=== PATIENT | male | born 1970 | race Caucasian/White ===

== ENCOUNTER 2024-09-06 11:44 | Emergency (ER) | payer MEDICAID ==
[~2024-09-06] VITALS: Ht 180.3 cm; Wt 115.0 kg
[2024-09-06 12:34] LABS: BASOPHILS # (AUTO) 0.1 X10'3 (0-0.2); BASOPHILS % (AUTO) 1.3 % (0-1); EOSINOPHILS # (AUTO) 0.1 X10'3 (0-0.9); EOSINOPHILS % (AUTO) 1.5 % (0-6); HEMATOCRIT 50.5 % (42.0-52.0); HEMOGLOBIN 16.8 g/dl (14.0-17.9); LYMPHOCYTES # (AUTO) 1.6 X10'3 (1.1-4.8); LYMPHOCYTES % (AUTO) 19.7 % (21-51); MEAN CORPUSCULAR HEMOGLOBIN 30.3 PG (27.0-31.0); MEAN CORPUSCULAR HGB CONC 33.3 g/dL (33.0-36.5); MEAN CORPUSCULAR VOLUME 91.1 FL (78-98); MEAN PLATELET VOLUME 8.2 FL (7.4-10.4); MONOCYTES % (AUTO) 12.7 % (2-12); NEUTROPHILS # (AUTO) 5.1 X10'3 (1.8-7.7); NEUTROPHILS % (AUTO) 64.8 % (42-75); PLATELET COUNT 246 X10'3 (140-440); RED BLOOD COUNT 5.55 X10'6 (4.70-6.10); RED CELL DISTRIBUTION WIDTH 13.6 % (11.5-14.5); WHITE BLOOD COUNT 7.9 X10'3 (4.5-11.0)
[2024-09-06 12:53] LABS: ALANINE AMINOTRANSFERASE 178 U/L (12-78); ALBUMIN 3.7 G/DL (3.4-5.0); ALBUMIN/GLOBULIN RATIO 0.8 (1.1-1.5); ALKALINE PHOSPHATASE 93 IU/L (46-116); ANION GAP 11 (8-16); ASPARTATE AMINO TRANSFERASE 121 U/L (10-37); BILIRUBIN,TOTAL 0.6 MG/DL (0.1-1.0); BLOOD UREA NITROGEN 11 MG/DL (7-18); BUN/CREATININE RATIO 11.1 (10.0-20.0); CHLORIDE 103 MMOL/L (99-107); CREATININE 0.99 MG/DL (0.60-1.10); GLUCOSE 115 MG/DL (70-104); LIPASE 30 U/L (16-77); SODIUM 138 MMOL/L (135-145); TOTAL CARBON DIOXIDE 23.7 MMOL/L (24-32); TOTAL PROTEIN 8.1 G/DL (6.4-8.2); eCRCL 92 ML/MIN; eGFR 79 ML/MIN
[2024-09-06] MEDS ORDERED: FLO0.4C PO (16:43)
[2024-09-06] MEDS ORDERED: HYDR-3965 PO (16:43)
[2024-09-06] MEDS ORDERED: ONDA-243 PO (16:43)
[2024-09-06] MEDS ORDERED: IBUP-1986 PO (16:43)
[2024-09-06] MEDS: ketorolac trometh 15mg/ml vial 15 MG/ML ML IM ONE (17:18)
[2024-09-06] MEDS: HYDROcodone/acetaminophen 5mg/325mg tablet PO ONE (17:18)
[2024-09-06 17:22] VITALS: BP 150/93; PULSE 75; RESP 16; TEMP 98.3; O2SAT 98
== END 2024-09-06 17:24 | disposition home or self-care (01) ==
LOC: ER 11:45
DX: N20.0 Calculus of kidney (principal); R10.31 Right lower quadrant pain; K46.9 Unspecified abdominal hernia without obstruction or gangrene; I70.90 Unspecified atherosclerosis; Z79.1 Long term (current) use of non-steroidal anti-inflammatories (NSAID); Z79.899 Other long term (current) drug therapy; Z93.2 Ileostomy status; Z93.3 Colostomy status
CPT/HCPCS: 36415; 74176; 80053; 83690; 85025; 96372; 99285; J1885

== ENCOUNTER 2025-03-17 12:25 | Inpatient (IN) | payer MEDICAID ==
[~2025-03-17] VITALS: Ht 175.3 cm; Wt 120.7 kg
[~2025-03-17 12:25] MED LIST: FLO0.4C PO; IBUP-1986 PO; ONDA-243 PO
[2025-03-17 13:18] LABS: BASOPHILS # (AUTO) 0.1 X10'3 (0-0.2); BASOPHILS % (AUTO) 1.3 % (0-1); EOSINOPHILS # (AUTO) 0.4 X10'3 (0-0.9); EOSINOPHILS % (AUTO) 3.8 % (0-6); HEMATOCRIT 34.5 % (42.0-52.0); HEMOGLOBIN 11.4 g/dl (14.0-17.9); LYMPHOCYTES # (AUTO) 1.6 X10'3 (1.1-4.8); MEAN CORPUSCULAR HEMOGLOBIN 29.4 PG (27.0-31.0); MEAN CORPUSCULAR HGB CONC 32.9 g/dL (33.0-36.5); MEAN CORPUSCULAR VOLUME 89.5 FL (78-98); MEAN PLATELET VOLUME 7.7 FL (7.4-10.4); MONOCYTES % (AUTO) 9.5 % (2-12); NEUTROPHILS # (AUTO) 7.6 X10'3 (1.8-7.7); NEUTROPHILS % (AUTO) 70.4 % (42-75); PLATELET COUNT 391 X10'3 (140-440); RED BLOOD COUNT 3.86 X10'6 (4.70-6.10); RED CELL DISTRIBUTION WIDTH 14.4 % (11.5-14.5); WHITE BLOOD COUNT 10.8 X10'3 (4.5-11.0)
--- NOTE | 2025-03-17 13:26 | RADIOLOGY REPORT ---
CHEST RADIOGRAPH Indication: sepsis Technique: Single frontal view of the chest was obtained COMPARISON: None FINDINGS: The cardiac silhouette is enlarged. The lungs demonstrate bilateral patchy airspace opacities. The pu lmonary vasculature is prominent. Small bilateral pleural effusions. There is no pneumothorax. IMPRESSION: 1. Cardiomegaly with pulmonary vascular congestion and bilateral patchy airspace opacities.
[2025-03-17 13:27] LABS: ALBUMIN 3.3 G/DL (3.4-5.0); ANION GAP 11 (8-16); BLOOD UREA NITROGEN 16 MG/DL (7-18); BUN/CREATININE RATIO 17.8 (10.0-20.0); CALCIUM 8.7 MG/DL (8.5-10.1); CHLORIDE 104 MMOL/L (99-107); GLUCOSE 122 MG/DL (70-104); POTASSIUM 4.1 MMOL/L (3.5-5.1); SODIUM 139 MMOL/L (135-145); eCRCL 95 ML/MIN; eGFR 88 ML/MIN
[2025-03-17 15:41] LABS: BILIRUBIN,URINE NEGATIVE (Neg); CLARITY,URINE SLIGHTLY CLOUDY (Clear); COLOR,URINE YELLOW (Yellow); GLUCOSE, URINE NEGATIVE (Neg); KETONES,URINE NEGATIVE (Neg); LEUKOCYTE ESTERASE ,URINE NEGATIVE (Neg); NITRITES, URINE NEGATIVE (Neg); OCCULT BLOOD,URINE LARGE (Neg); PROTEIN,URINE 100 mg/dl (Neg); UROBILINOGEN,URINE 0.2 E.U/dL (0.2-1.0)
[2025-03-17 15:42] LABS: UA COLLECTION TYPE VOIDED
[2025-03-17 15:55] LABS: MUCUS STRANDS MODERATE /LPF (Neg); RBC,URINE TNTC /HPF (0-2); SPERM MODERATE /HPF (NEGATIVE); SQUAMOUS EPITHELIAL CELL,UR FEW /LPF (FEW)
[2025-03-17 15:57] LABS: BACTERIA,URINE FEW /HPF (Neg); WBC,URINE 20-30 /HPF (0-4)
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
[2025-03-17] MEDS: ondansetron/PF 4mg/2ml inj IV ONE (16:47)
[2025-03-17] MEDS: LIDOcaine 1% W/epiNEPHrine 1:100,000 20ml vial SQ ONE (16:47)
[2025-03-17] MEDS: morphine 4 MG/ML inj SYRINge IV ONE (16:48)
[2025-03-17] MEDS: LIDOcaine/epinephrine/tetracaine TOPICAL sol 3 ML syringe TOP ONE ×2 (16:49→19:01)
[2025-03-17] MEDS: ketorolac trometh 30MG/ML vial 30 MG/ML VIAL IM ONE (16:59)
--- NOTE | 2025-03-17 17:57 | RADIOLOGY REPORT ---
Indication: suspected right kidney stone Technique: CT axial images of the abdomen and pelvis are obtained with intravenous contrast. Coronal and sagittal reformats were obtained. Radiation Dose Information: CTDI volume is 35 mGy. Dose-length product is 1949 mGy*cm Comparison: CT CT ABDOMEN PELVIS on DOS: 09/06/24 FINDINGS: Lung bases demonstrate bibasilar atelectasis / consolidation. Adrenal glands unremarkable in shape. Splenic hilar calcification measuring 1 cm consistent with jeniffer te granulomatous disease. Pancreas, liver unremarkable in shape. Cholelithiasis. Right renal pelvic calculus resulting in llde-dm-qhydtygp right hydronephrosis measuring 1.4 cm. There is right periure teral stranding. Left kidney demonstrates no hydronephrosis / nephrolithiasis. Stomach is partially distended. Small bowel loops are normal in caliber. Colonic diverticula. Hemicolectomy. Right ileostomy with parastomal hernia containing small bowel loo ps measuring 6.6 x 5.7 cm. Abdominal aortic atherosclerotic disease. Subcentimeter retroperitoneal lymph nodes. Bladder disten ded. No free pelvic fluid. No inguinal lymphadenopathy. Mild bilateral sacroiliac degenerative joint disease. Old posterior left rib fractures. Moderate thor acolumbar degenerative disc disease most pronounced at L5-S1. Soft tissue edema /anasarca. IMPRESSION: 1. Gjcw-ku-rzrhmosj right hydronephrosis secondary to a right renal pelvic calculus measuring 1.4 cm. Right periureteral stranding likely representing urinary tract infection/pyelonephritis. 2. Cholelithiasis. 3. Hemicolectomy. Right ileostomy. Right parastomal hernia containing small bowel loops measuring 6 .6 x 5.7 cm. 4. Bibasilar atelectasis/ consolidation. 5. Atherosclerotic disease. 6. Soft tissue edema / anasarca.
[2025-03-17] MEDS ORDERED: magnesium Cl slow-release 64mg tablet PO PRN (18:35)
[2025-03-17] MEDS ORDERED: magnesium hydroxide 30ml (MOM) UD suspension PO PRN (18:35)
[2025-03-17] MEDS: PERFLUTREN PROTEIN-A MICROSPHR (Optison) 0.22 MG/ML 3ML VIAL IV ONE (18:35)
[2025-03-17] MEDS ORDERED: potassium Cl 40MEQ/1/2NS 520ml 520 ML IV PRN (18:35)
[2025-03-17] MEDS ORDERED: magnesium sulf-water 4G/100mL 100 ML IV PRN (18:35)
[2025-03-17] MEDS ORDERED: magnesium sulf-water 2g/50mL 50 ML IV PRN (18:35)
[2025-03-17] MEDS ORDERED: potassium Cl 20 mEq SR tablet PO PRN ×2 (18:35)
[2025-03-17] MEDS ORDERED: mag hydrox/Alum hydrox/simeth 30ml oral suspension PO PRN (18:35)
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
[2025-03-17] MEDS ORDERED: haloperidol lactate 5mg/ml inj IM PRN (18:45)
[2025-03-17] MEDS ORDERED: LORazepam 2 mg/ml vial IV PRN (18:45)
[2025-03-17] MEDS ORDERED: iohexol 300mg/ml 100ml inj. ONE (19:05)
[2025-03-17 19:08] LABS: HEMOGLOBIN A1C 5.9 % (4.5-6.2)
[2025-03-17 19:14] LABS: APTT 28 SECONDS (22-32); INR 1.1 INR; PROTHROMBIN TIME 10.9 SECONDS (9.0-12.0)
[2025-03-17] MEDS: vancomycin/NS 1 GM ADD-VANTAGE 250 ML IV SCH (19:24)
--- NOTE | 2025-03-17 19:26 | RADIOLOGY REPORT ---
CLINICAL HISTORY: trauma 2 weeks ago TECHNIQUE: Helical imaging carried out from skull base to vertex without intravenous contrast. This e xam was performed according to our departmental dose optimization program. Up-to-date CT equipment an d radiation dose reduction techniques are utilized as appropriate. CTDIVol: 0.14+ 69.06 mGy DLP: 1336.79 mGy-cm WID: COMPARISON: None FINDINGS: Moderate contusion/ hematoma in the posterior high parietal scalp. The ventricles and subarachnoid spaces are normal in size and configuration. There is no midline maico ft or mass effect. The young white matter interfaces are maintained. The basal cisterns are patent. Th ere is no evidence of acute intracranial hemorrhage or extra-axial fluid collection. The mastoid air cells and visualized paranasal sinuses are well-aerated aside from a tiny mucous retention cyst or po lyp in the left maxillary sinus and complete opacification of the right maxillary sinus with sclerosi s of the right maxillary sinus ash.. IMPRESSION: 1. No acute intracranial abnormality. 2. Moderate sized contusion/ hematoma in the posterior high parietal scalp. 3. Chronic right maxillary sinusitis.
[2025-03-17 19:29] LABS: PRO BRAIN NATRIURETIC PEPTIDE 96 PG/ML (0-125); THYROID STIMULATING HORMONE 0.53 ulU/ml (0.34-4.50)
[2025-03-17 19:31] LABS: ETHANOL < 10 MG/DL (<10)
[2025-03-17] MEDS: K and/or MAG REPLACEMENT MC SCH (20:00)
[2025-03-17] MEDS: acetaminophen 325mg tablet PO PRN (21:10)
[2025-03-17] MEDS: heparin, porcine 5000 units/ml vial SQ SCH (21:11)
[2025-03-17] MEDS: docusate sod 100mg capsule PO SCH (21:11)
[2025-03-17] MEDS: piperacillin/tazo 4.5gm/100ml 100 ML IV SCH (22:56)
[2025-03-17] MEDS: HYDROmorphone inj. 0.5 MG/0.5 ML DISP.SYRIN IV PRN (23:06)
[2025-03-18] MEDS: diphenhydrAMINE 50 mg/ml inj IV ONE ×2 (01:53→11:35)
--- NOTE | 2025-03-18 03:52 | RADIOLOGY REPORT ---
INDICATION: Treatment fail left leg infections COMPARISON: None TECHNIQUE: CT of the left lower extremity was performed with contrast. Volume transverse images were obtained and reconstructed in multiple planes using bone and soft tissue algorithms. Radiation Dose Information: CT Dose: CTDI volume is 7.6 mGy. Dose-length product is 481 mGy*cm FINDINGS: The alignment is normal. The joint spaces are normal. There is no fracture, dislocation or aggressive osseous lesion. There is no joint effusion. Diffuse soft-tissue swelling and edema throughout the left lower extremity most prominent in the calf and ankle and dorsum of the foot. This may represent cellulitis. Soft-tissue ulceration at the poste rolateral aspect of the proximal calf. IMPRESSION: Diffuse soft-tissue swelling and edema throughout the left lower extremity most prominent in the calf and ankle and dorsum of the foot. This may represent cellulitis. Soft-tissue ulceration at the posterolateral aspect of the proximal calf.
[2025-03-18 04:33] LABS: BASOPHILS % (AUTO) 0.2 % (0-1); EOSINOPHILS # (AUTO) 0.5 X10'3 (0-0.9); EOSINOPHILS % (AUTO) 4.1 % (0-6); HEMATOCRIT 36.6 % (42.0-52.0); HEMOGLOBIN 12.2 g/dl (14.0-17.9); LYMPHOCYTES # (AUTO) 0.7 X10'3 (1.1-4.8); LYMPHOCYTES % (AUTO) 5.6 % (21-51); MEAN CORPUSCULAR HEMOGLOBIN 29.4 PG (27.0-31.0); MEAN CORPUSCULAR HGB CONC 33.2 g/dL (33.0-36.5); MEAN CORPUSCULAR VOLUME 88.5 FL (78-98); MEAN PLATELET VOLUME 7.4 FL (7.4-10.4); MONOCYTES # (AUTO) 0.5 X10'3 (0-0.9); MONOCYTES % (AUTO) 3.8 % (2-12); NEUTROPHILS # (AUTO) 10.9 X10'3 (1.8-7.7); NEUTROPHILS % (AUTO) 86.3 % (42-75); PLATELET COUNT 358 X10'3 (140-440); RED BLOOD COUNT 4.14 X10'6 (4.70-6.10); RED CELL DISTRIBUTION WIDTH 14.8 % (11.5-14.5); WHITE BLOOD COUNT 12.6 X10'3 (4.5-11.0)
[2025-03-18 04:55] LABS: ALANINE AMINOTRANSFERASE 120 U/L (12-78); ALBUMIN 3.1 G/DL (3.4-5.0); ALBUMIN/GLOBULIN RATIO 0.9 (1.1-1.5); ALKALINE PHOSPHATASE 138 IU/L (46-116); ANION GAP 7 (8-16); ASPARTATE AMINO TRANSFERASE 62 U/L (10-37); BILIRUBIN,TOTAL 0.6 MG/DL (0.1-1.0); BLOOD UREA NITROGEN 21 MG/DL (7-18); BUN/CREATININE RATIO 16.9 (10.0-20.0); CALCIUM 8.7 MG/DL (8.5-10.1); CHLORIDE 104 MMOL/L (99-107); CHOL/HDL RATIO 5.4 (0.00-4.99); CHOLESTEROL 188 MG/DL (0-200); CREATININE 1.24 MG/DL (0.60-1.10); GLUCOSE 118 MG/DL (70-104); HDL CHOLESTEROL 35 MG/DL (35-60); LDL CHOLESTEROL 118 MG/DL (50-100); POTASSIUM 4.1 MMOL/L (3.5-5.1); SODIUM 140 MMOL/L (135-145); TOTAL CARBON DIOXIDE 28.8 MMOL/L (24-32); TOTAL PROTEIN 6.7 G/DL (6.4-8.2); TRIGLYCERIDES 170 MG/DL (20-135); eCRCL 69 ML/MIN; eGFR 61 ML/MIN
[2025-03-18 06:53] VITALS: BP 132/81; PULSE 76; RESP 16; TEMP 97.9; O2SAT 96
[2025-03-18 08:00] VITALS: RESP 20; O2SAT 95
[2025-03-18] MEDS: multivitamins, therapeutics tablet PO SCH (08:20)
[2025-03-18] MEDS: normal saline 1000ml 1,000 ML IV SCH (08:21)
[2025-03-18] MEDS: cefepime 2g/NS 100ml ADVANTAGE 100 ML IV SCH (08:21)
[2025-03-18 10:00] VITALS: BP 124/66; PULSE 90; RESP 20; TEMP 97; O2SAT 95
[2025-03-18] MEDS: ketorolac trometh 30MG/ML vial 30 MG/ML VIAL IV ONE (10:53)
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
[2025-03-18] MEDS: CEFEPIME 2gm in D5W 50mL 50 ML IV SCH (16:45)
[2025-03-18] MEDS: HYDROcodone/acetaminophen 10/325mg tab PO PRN (16:50)
[2025-03-18] MEDS: JUVEN Smoothie Arginine/Glut./Ca2+Bmb (Juven 19.3pkt) 240ml cup PO SCH (17:30)
[2025-03-18 18:30] VITALS: BP 121/52; PULSE 78; RESP 19; TEMP 97.6; O2SAT 96
[2025-03-18] MEDS: VANCOMYCIN LEVEL IV ONE (18:30)
--- NOTE | 2025-03-18 18:30 | CARDIOLOGY REPORT ---
APPROVED REPORT EXAM: Comprehensive 2D, Doppler, and color-flow Echocardiogram. Patient Location: [address] Blood Pressure: 132/81 mmHg Heart Rate: 83 bpm Rhythm: SINUS Indications CONGESTIVE HEART FAILURE ETOH LE EDEMA Front Office Clerk: none Previous echo: none 2D Dimensions RVDd 5.1 cm LA Diam5.4 cm IVSd 1.1 (0.7-1.1cm) LVDd 4.7 cm PWd 1.1 (0.7-1.1cm) IVSs 1.2 (0.8-1.2cm) LVDs 3.6 (2.5-4.0cm) PWs 1.6 (0.8-1.2cm) LVOT Diameter 2.61 (1.8-2.4cm) LVEF(%) 57.0 (>50%) Ao Asc Diam.4.20 cmFS (%) 23.5 % SV 48.1 ml CO 4.1 L/min M-Mode Dimensions Left Atrium(MM) 5.17 (2.5-4.0cm) Aortic Root 4.21 (2.2-3.7cm) Aortic Cusp Exc 2.79 (1.5-2.0cm) Biplane 2D LA Volumes LA ESV Index 20.54 mL/m2 Aortic Valve AoV Peak Cain. 168.1 cm/s AoV VTI 24.9 cm AO Peak GR. 11.3 mmHg AO Mean GR. 7 mmHg LVOT VTI 23.71 cm LVOT Peak Cain. 111.3 cm/s BAIRON(VTI)/BSA 5.10 cm2/m2 BAIRON (VTI) 5.10 cm2 Mitral Valve MV E Velocity 95.7 cm/s MV Peak Gr. 4 mmHg MV DECEL TIME 272 ms MV A Velocity 107.0 cm/s MV PHT 64 ms E/A Ratio 0.9 MVA (PHT) 3.44 cm2 MV TEdg006.0 cm/s TDI Medial E' P. V 10.33 cm/s E/Medial E' 9.3 Pulmonary Vein S1 Velocity 51.4 cm/s D2 Velocity 38.1 cm/s PVa Ivimtemn86.3 cm/s PVa Ctigppcj17 msec LEFT VENTRICLE Normal LV size and wall thickness. Overall systolic function is normal. LVEF is 55%. RIGHT VENTRICLE RV is severely dilated with at least mildly reduced systolic function. ATRIA Left atrium size is normal. Right atrium appears moderately dilated. AORTIC VALVE Trileaflet AV appears mildly sclerotic without stenosis or insufficiency. MITRAL VALVE Mild MV annular calcification without stenosis. Trace regurgitation. TRICUSPID VALVE TV appears structurally normal with trace regurgitation. PULMONIC VALVE Normal PV without stenosis, physiologic insufficiency. GREAT VESSELS Aortic root is dilated. Ascending aorta is dilated. PERICARDIUM Normal pericardium. No effusion. Other Information Study Quality: Adequate Conclusion Normal LV size and wall thickness. Overall systolic function is normal. LVEF is 55%. RV is severely dilated with at least mildly reduced systolic function. Left atrium size is normal. Right atrium appears moderately dilated. Trileaflet AV appears mildly sclerotic without stenosis or insufficiency. Mild MV annular calcification without stenosis. Trace regurgitation. TV appears structurally normal with trace regurgitation. Aortic root is dilated. Ascending aorta is dilated. Normal pericardium. No effusion.
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
[2025-03-18] MEDS: diphenhydrAMINE 50 mg/ml inj IV PRN (20:06)
[2025-03-18 20:20] VITALS: RESP 16
[2025-03-18] MEDS: tamsulosin 0.4mg capsule PO SCH (20:45)
[2025-03-18 22:00] VITALS: BP 146/74; PULSE 80; RESP 15; TEMP 98.6; O2SAT 97
[2025-03-19] MEDS: HYDROmorphone/PF 0.2 MG/ML SYRINGE IV PRN (00:57)
[2025-03-19 05:02] LABS: BASOPHILS % (AUTO) 0.3 % (0-1); EOSINOPHILS # (AUTO) 1.6 X10'3 (0-0.9); EOSINOPHILS % (AUTO) 14.2 % (0-6); HEMATOCRIT 33.4 % (42.0-52.0); HEMOGLOBIN 11.1 g/dl (14.0-17.9); LYMPHOCYTES # (AUTO) 1.3 X10'3 (1.1-4.8); LYMPHOCYTES % (AUTO) 11.8 % (21-51); MEAN CORPUSCULAR HEMOGLOBIN 29.6 PG (27.0-31.0); MEAN CORPUSCULAR HGB CONC 33.3 g/dL (33.0-36.5); MEAN CORPUSCULAR VOLUME 88.8 FL (78-98); MEAN PLATELET VOLUME 7.9 FL (7.4-10.4); MONOCYTES # (AUTO) 0.6 X10'3 (0-0.9); MONOCYTES % (AUTO) 5.4 % (2-12); NEUTROPHILS # (AUTO) 7.7 X10'3 (1.8-7.7); NEUTROPHILS % (AUTO) 68.3 % (42-75); PLATELET COUNT 354 X10'3 (140-440); RED BLOOD COUNT 3.77 X10'6 (4.70-6.10); WHITE BLOOD COUNT 11.3 X10'3 (4.5-11.0)
[2025-03-19 05:15] LABS: ALANINE AMINOTRANSFERASE 95 U/L (12-78); ALBUMIN 2.9 G/DL (3.4-5.0); ALBUMIN/GLOBULIN RATIO 0.8 (1.1-1.5); ALKALINE PHOSPHATASE 128 IU/L (46-116); ANION GAP 8 (8-16); ASPARTATE AMINO TRANSFERASE 51 U/L (10-37); BILIRUBIN,TOTAL 0.4 MG/DL (0.1-1.0); BLOOD UREA NITROGEN 17 MG/DL (7-18); BUN/CREATININE RATIO 17.2 (10.0-20.0); CALCIUM 8.4 MG/DL (8.5-10.1); CHLORIDE 105 MMOL/L (99-107); CREATININE 0.99 MG/DL (0.60-1.10); GLUCOSE 133 MG/DL (70-104); MAGNESIUM 1.8 MG/DL (1.5-2.4); POTASSIUM 4.1 MMOL/L (3.5-5.1); SODIUM 138 MMOL/L (135-145); TOTAL CARBON DIOXIDE 25.5 MMOL/L (24-32); TOTAL PROTEIN 6.5 G/DL (6.4-8.2); eCRCL 86 ML/MIN; eGFR 79 ML/MIN
[2025-03-19 06:00] VITALS: BP 141/79; PULSE 86; RESP 15; TEMP 98; O2SAT 95
[2025-03-19 11:51] VITALS: BP 181/97; PULSE 73; RESP 16; TEMP 97.2; O2SAT 96
[2025-03-19] MEDS ORDERED: fluconazole 150mg tablet PO SCH (12:45)
[2025-03-19] MEDS ORDERED: nystatin 15 GM powder TP SCH (13:00)
[2025-03-19] MEDS: VANCOmycin 1250MG/NS 250ml Bag 250 ML IV SCH (14:55)
[2025-03-19] MEDS: HYDROcodone/acetaminophen 10/325mg tab PO PRN (15:12)
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
[2025-03-19 18:00] VITALS: BP 145/79; PULSE 84; RESP 16; TEMP 97.7; O2SAT 95
--- NOTE | 2025-03-19 18:14 | PROGRESS NOTE ---
Progress Note ID Providers to CC ~ Progress Note Progress Note: pt seen-needs scalp would washout and reclosure EDUAR JEAN MD Mar 19, 2025 18:14
[2025-03-19 20:00] VITALS: RESP 16; O2SAT 95
[2025-03-19 22:00] VITALS: BP 127/69; PULSE 76; RESP 19; TEMP 97.7; O2SAT 95
[2025-03-20] VITALS (19 sets, daily range): BP systolic 120–163; BP diastolic 65–91; PULSE 64–84; RESP 12–20; TEMP 97.3–98.7; O2SAT 94–100
[2025-03-20 04:22] LABS: BASOPHILS # (AUTO) 0.1 X10'3 (0-0.2); BASOPHILS % (AUTO) 0.6 % (0-1); EOSINOPHILS # (AUTO) 1.4 X10'3 (0-0.9); EOSINOPHILS % (AUTO) 15.1 % (0-6); HEMATOCRIT 32.5 % (42.0-52.0); LYMPHOCYTES # (AUTO) 1.3 X10'3 (1.1-4.8); LYMPHOCYTES % (AUTO) 13.9 % (21-51); MEAN CORPUSCULAR HEMOGLOBIN 29.9 PG (27.0-31.0); MEAN CORPUSCULAR HGB CONC 33.8 g/dL (33.0-36.5); MEAN CORPUSCULAR VOLUME 88.3 FL (78-98); MEAN PLATELET VOLUME 7.3 FL (7.4-10.4); MONOCYTES % (AUTO) 10.6 % (2-12); NEUTROPHILS # (AUTO) 5.6 X10'3 (1.8-7.7); NEUTROPHILS % (AUTO) 59.8 % (42-75); PLATELET COUNT 312 X10'3 (140-440); RED BLOOD COUNT 3.68 X10'6 (4.70-6.10); RED CELL DISTRIBUTION WIDTH 14.6 % (11.5-14.5); WHITE BLOOD COUNT 9.4 X10'3 (4.5-11.0)
[2025-03-20 04:36] LABS: ALANINE AMINOTRANSFERASE 98 U/L (12-78); ALKALINE PHOSPHATASE 121 IU/L (46-116); ANION GAP 8 (8-16); ASPARTATE AMINO TRANSFERASE 60 U/L (10-37); BILIRUBIN,TOTAL 0.4 MG/DL (0.1-1.0); BLOOD UREA NITROGEN 15 MG/DL (7-18); BUN/CREATININE RATIO 16.9 (10.0-20.0); CALCIUM 8.6 MG/DL (8.5-10.1); CHLORIDE 106 MMOL/L (99-107); CREATININE 0.89 MG/DL (0.60-1.10); GLUCOSE 106 MG/DL (70-104); POTASSIUM 4.5 MMOL/L (3.5-5.1); SODIUM 140 MMOL/L (135-145); TOTAL CARBON DIOXIDE 25.7 MMOL/L (24-32); TOTAL PROTEIN 6.1 G/DL (6.4-8.2); eCRCL 96 ML/MIN; eGFR 89 ML/MIN
--- NOTE | 2025-03-20 07:04 | ELECTROCARDIOGRAPH REPORT ---
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 Keny Tate Measurements Intervals [place] Rate: 72 P: 47 OH: 173 QRS: 31 QRSD: 114 T: 51 QT: 388 QTc: 425 Interpretive Statements Sinus rhythm Borderline intraventricular conduction delay Electronically Signed On 03-21-2025 8:19:[address] Keny Tate Please click the below link to view image of tracing.
[2025-03-20 07:18] LABS: APTT 29 SECONDS (22-32); INR 1.1 INR; PROTHROMBIN TIME 10.9 SECONDS (9.0-12.0)
--- NOTE | 2025-03-20 10:18 | PROGRESS NOTE ---
Progress Note ID Providers to CC ~ Progress Note Progress Note: discussed procedure including risks/benefits/alternatives EDUAR JEAN MD Mar 20, 2025 10:18
[2025-03-20] MEDS: VANCOMYCIN LEVEL IV ONE (10:30)
[2025-03-20] MEDS ORDERED: sevoflurane 250ml liquid IH ONE (13:45)
[2025-03-20] MEDS ORDERED: midazolam 1 mg/ML 2ml injection ONE (13:52)
[2025-03-20] MEDS ORDERED: fentaNYL/PF 50MCG/1 ML 2ML syringe ONE (13:52)
[2025-03-20] MEDS ORDERED: propofol inj 20 ML IV ONE (13:52)
[2025-03-20] MEDS ORDERED: BUPIVAcaine 2.5mg/ml inj 50ml vial (contains preservative) ONE (13:54)
--- NOTE | 2025-03-20 14:58 | OPERATIVE REPORT ---
Operative Report Providers to CC ~ Date of Procedure: Mar 20, 2025 Pre-Operative Diagnosis: dehisced scalp wound Post-Operative Diagnosis SAME as PRE-Op Procedure Performed wound exploration with reclosure Surgeon: ashanti Yarn Salvager none Anesthesiologist: Fortunato Murray Type of Anesthesia: General Findings: dehisced scalp wound Estimated Blood Loss: min Specimen Removed: none EDUAR JEAN MD Mar 20, 2025 14:58
[2025-03-20] MEDS ORDERED: HYDROmorphone/PF 0.2 MG/ML SYRINGE IV PRN ×2 (15:05)
[2025-03-20] MEDS ORDERED: morphine 2 MG/ML inj. syringe IV PRN (15:05)
[2025-03-20] MEDS ORDERED: ondansetron/PF 4mg/2ml inj IV PRN (15:05)
[2025-03-20] MEDS ORDERED: labetalol 20mg/4ml (5mg/ml) syringe IV PRN (15:05)
[2025-03-20] MEDS: ringers solution, lacted 1,000 ML IV SCH (15:05)
[2025-03-20] MEDS ORDERED: hydrALAZINE 20mg/ml inj. IV PRN (15:05)
[2025-03-20] MEDS ORDERED: acetaminophen 1,000mg/100ml IV 100 ML IV PRN (15:05)
[2025-03-20] MEDS: morphine 4 MG/ML inj SYRINge IV PRN (15:12)
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
[2025-03-20] MEDS: VANCOMYCIN/WATER FOR INJ (PEG) 1.5GM/300 ML IVPB IV SCH (20:40)
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
[2025-03-21 02:00] VITALS: BP 114/62; PULSE 86; RESP 16; TEMP 98.5; O2SAT 95
[2025-03-21] MEDS: LORazepam 2 mg/ml vial IV PRN (03:04)
[2025-03-21 06:00] VITALS: BP 119/58; PULSE 79; RESP 16; TEMP 97.5; O2SAT 92
[2025-03-21 06:06] LABS: BASOPHILS % (AUTO) 0.5 % (0-1); EOSINOPHILS # (AUTO) 1.3 X10'3 (0-0.9); EOSINOPHILS % (AUTO) 14.3 % (0-6); HEMATOCRIT 32.6 % (42.0-52.0); LYMPHOCYTES # (AUTO) 1.3 X10'3 (1.1-4.8); LYMPHOCYTES % (AUTO) 14.4 % (21-51); MEAN CORPUSCULAR HEMOGLOBIN 29.7 PG (27.0-31.0); MEAN CORPUSCULAR HGB CONC 33.7 g/dL (33.0-36.5); MEAN CORPUSCULAR VOLUME 88.2 FL (78-98); MEAN PLATELET VOLUME 7.7 FL (7.4-10.4); MONOCYTES % (AUTO) 11.6 % (2-12); NEUTROPHILS # (AUTO) 5.3 X10'3 (1.8-7.7); NEUTROPHILS % (AUTO) 59.2 % (42-75); PLATELET COUNT 319 X10'3 (140-440); RED CELL DISTRIBUTION WIDTH 14.6 % (11.5-14.5)
[2025-03-21 06:21] LABS: ALANINE AMINOTRANSFERASE 107 U/L (12-78); ALBUMIN/GLOBULIN RATIO 0.9 (1.1-1.5); ALKALINE PHOSPHATASE 128 IU/L (46-116); ANION GAP 9 (8-16); ASPARTATE AMINO TRANSFERASE 69 U/L (10-37); BILIRUBIN,TOTAL 0.4 MG/DL (0.1-1.0); BLOOD UREA NITROGEN 12 MG/DL (7-18); CALCIUM 8.3 MG/DL (8.5-10.1); CHLORIDE 105 MMOL/L (99-107); CREATININE 0.92 MG/DL (0.60-1.10); GLUCOSE 124 MG/DL (70-104); POTASSIUM 4.4 MMOL/L (3.5-5.1); SODIUM 139 MMOL/L (135-145); TOTAL CARBON DIOXIDE 25.5 MMOL/L (24-32); TOTAL PROTEIN 6.2 G/DL (6.4-8.2); eCRCL 93 ML/MIN; eGFR 86 ML/MIN
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
[2025-03-21 09:30] VITALS: RESP 18
[2025-03-21] MEDS: thiamine 100mg tablet PO SCH (09:49)
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
--- NOTE | 2025-03-21 15:45 | PROGRESS NOTE ---
Progress Note ID Providers to CC ~ Progress Note Progress Note: DOING WELL/DC DRAIN IN AM EDUAR JEAN MD Mar 21, 2025 15:45
[2025-03-21 18:00] VITALS: BP 160/92; PULSE 78; RESP 17; TEMP 97; O2SAT 95
[2025-03-21] MEDS: VANCOMYCIN LEVEL IV ONE (18:30)
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
[2025-03-21 20:00] VITALS: RESP 17; O2SAT 95
[2025-03-21 22:00] VITALS: BP 147/93; PULSE 78; RESP 22; TEMP 98.5; O2SAT 95
[2025-03-22] MEDS: ondansetron/PF 4mg/2ml inj IV PRN (01:19)
[2025-03-22 02:45] VITALS: O2SAT 92
[2025-03-22 06:00] VITALS: BP 102/48; PULSE 91; RESP 22; TEMP 97.4; O2SAT 91
[2025-03-22 06:32] LABS: BASOPHILS # (AUTO) 0.1 X10'3 (0-0.2); BASOPHILS % (AUTO) 0.6 % (0-1); EOSINOPHILS # (AUTO) 0.9 X10'3 (0-0.9); EOSINOPHILS % (AUTO) 8.7 % (0-6); LYMPHOCYTES # (AUTO) 1.2 X10'3 (1.1-4.8); LYMPHOCYTES % (AUTO) 11.9 % (21-51); MEAN CORPUSCULAR HEMOGLOBIN 29.2 PG (27.0-31.0); MEAN CORPUSCULAR HGB CONC 33.4 g/dL (33.0-36.5); MEAN CORPUSCULAR VOLUME 87.4 FL (78-98); MEAN PLATELET VOLUME 8.1 FL (7.4-10.4); MONOCYTES # (AUTO) 1.1 X10'3 (0-0.9); MONOCYTES % (AUTO) 11.1 % (2-12); NEUTROPHILS # (AUTO) 6.9 X10'3 (1.8-7.7); NEUTROPHILS % (AUTO) 67.7 % (42-75); PLATELET COUNT 345 X10'3 (140-440); RED BLOOD COUNT 3.77 X10'6 (4.70-6.10); RED CELL DISTRIBUTION WIDTH 14.2 % (11.5-14.5); WHITE BLOOD COUNT 10.2 X10'3 (4.5-11.0)
[2025-03-22 06:48] LABS: ALANINE AMINOTRANSFERASE 97 U/L (12-78); ALBUMIN 3.1 G/DL (3.4-5.0); ALBUMIN/GLOBULIN RATIO 0.9 (1.1-1.5); ALKALINE PHOSPHATASE 125 IU/L (46-116); ANION GAP 13 (8-16); ASPARTATE AMINO TRANSFERASE 60 U/L (10-37); BILIRUBIN,TOTAL 0.4 MG/DL (0.1-1.0); BLOOD UREA NITROGEN 12 MG/DL (7-18); BUN/CREATININE RATIO 14.6 (10.0-20.0); CALCIUM 8.6 MG/DL (8.5-10.1); CHLORIDE 102 MMOL/L (99-107); CREATININE 0.82 MG/DL (0.60-1.10); GLUCOSE 116 MG/DL (70-104); POTASSIUM 4.4 MMOL/L (3.5-5.1); SODIUM 140 MMOL/L (135-145); TOTAL CARBON DIOXIDE 25.3 MMOL/L (24-32); TOTAL PROTEIN 6.7 G/DL (6.4-8.2); eCRCL 104 ML/MIN; eGFR > 90 ML/MIN
[2025-03-22 08:00] VITALS: RESP 18; O2SAT 97
[2025-03-22] MEDS: folic acid 1mg tablet PO SCH (08:56)
[2025-03-22 11:00] VITALS: BP 147/79; PULSE 81; RESP 19; TEMP 97.3; O2SAT 95
[2025-03-22] MEDS ORDERED: FOLI1TAB27 PO (11:12)
[2025-03-22] MEDS ORDERED: MULT-25 PO (11:12)
[2025-03-22] MEDS ORDERED: thiamine tablet PO (11:12)
[2025-03-22] MEDS ORDERED: AMOX-580 PO (11:14)
--- NOTE | 2025-03-22 11:31 | PROGRESS NOTE ---
Progress Note ID Providers to CC ~ Progress Note Progress Note: doing well/ok to dc drain and dc with antibx EDUAR JEAN MD Mar 22, 2025 11:31
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
== END 2025-03-22 11:57 | disposition home or self-care (01) | DRG 813 ==
LOC: ER 12:25 → ED HOLD 17:15 → SUR 3N 21:35
PROVIDERS: ADMIT Family Medicine; ATTEND Family Medicine
PROC: 0HB0XZZ Excision of Scalp Skin, External Approach (ICD-10-PCS; principal; 2025-03-21)
PROC: 0W9 Anatomical Regions, General, Drainage (ICD-10-PCS; 2025-03-21)
DX: T81.31XA Disruption of external operation (surgical) wound, not elsewhere classified, initial encounter (principal); S81.802A Unspecified open wound, left lower leg, initial encounter; E11.65 Type 2 diabetes mellitus with hyperglycemia; L03.114 Cellulitis of left upper limb; E66.812 Obesity, class 2; F10.10 Alcohol abuse, uncomplicated; S00.03XA Contusion of scalp, initial encounter; K80.20 Calculus of gallbladder without cholecystitis without obstruction; R74.01 Elevation of levels of liver transaminase levels; N13.2 Hydronephrosis with renal and ureteral calculous obstruction; G47.33 Obstructive sleep apnea (adult) (pediatric); Y83.8 Other surgical procedures as the cause of abnormal reaction of the patient, or of later complication, without mention of misadventure at the time of the procedure; X58.XXXA Exposure to other specified factors, initial encounter; Z93.2 Ileostomy status; V86.56XA Driver of dirt bike or motor/cross bike injured in nontraffic accident, initial encounter; Y93.89 Activity, other specified; Y92.89 Other specified places as the place of occurrence of the external cause; Y99.8 Other external cause status; Z68.39 Body mass index [BMI] 39.0-39.9, adult; Z90.49 Acquired absence of other specified parts of digestive tract
CPT/HCPCS: 36415; 70450; 71045; 73701; 74176; 80048; 80053; 80061; 80202; 80320; 81001; 82948; 82977; 83036; 83605; 83735; 83880; 84145; 84443; 85025; 85610; 85651; 85730; 87040; 87081; 87088; 93005; 93306; 96372; 96374; 96375; 97161; 97530; 99291; A4421; A4615; A4618; A6223; A6258; A6446; A6449; A7000; G0378; J0692; J1171; J1200; J1644; J1885; J2060; J2250; J2270; J2405; J2543; J2704; J3010; J3370; J3372; J3490; J7030; Q9967

== ENCOUNTER 2025-04-28 13:12 | Emergency (ER) | payer MEDICAID ==
[~2025-04-28] VITALS: Ht 180.3 cm; Wt 114.0 kg
[~2025-04-28 13:12] MED LIST changes: +FOLI1TAB27 PO; +MULT-25 PO; +thiamine tablet PO
[2025-04-28 13:19] VITALS: TEMP 97.9
[2025-04-28 13:49] LABS: MEAN PLATELET VOLUME 8.4 FL (7.4-10.4); RED CELL DISTRIBUTION WIDTH 15.0 % (11.5-14.5)
[2025-04-28 14:14] LABS: CREATININE 1.09 MG/DL (0.60-1.10); TOTAL CARBON DIOXIDE 21.9 MMOL/L (24-32); eCRCL 83 ML/MIN; eGFR 71 ML/MIN
--- NOTE | 2025-04-28 14:30 | Physician Documentation ---
History of Present Illness Chief Complaint: Flank Pain Stated Complaint: KIDNEY STONES Time Seen by MD: 13:54 Primary Medical Doctor: TANNER HPI 54 yom h/o chronic right renal pelvic stone with pyelonephritis, CHF, obesity, heavy alcohol use, right hemicolectomy p/w chronic right flank pain. Ongoing several months. Medication Reconciliation Allergies: Coded Allergies: No Known Allergies (Unverified , 04/28/25) Scheduled Folic Acid* (Folic Acid*), 1 MG PO DAILY Ibuprofen (Ibuprofen), 1 TAB PO Q8H Multivitamin with Folic Acid (Thera Tablet), 1 EACH PO Q24H Tamsulosin Hcl (Flomax), 1 CAP PO DAILY [thiamine tablet], 100 MG PO DAILY Scheduled PRN ONDANSETRON ODT 4mg tablet (Ondansetron Odt), 1 TAB PO Q6H PRN PRN for nausea/vomiting Past Medical History Past Medical History: *GI/HEPATOBILIARY*, Kidney Stones Patient History: Patient reports no known family medical history. Review of Systems Constitutional: Denies: fever Respiratory: Denies: cough, shortness of breath Cardiovascular: Denies: chest pain Gastrointestinal: Reports: abdominal pain; Denies: abdomen distended, nausea, vomiting, diarrhea, melena, hematemesis Genitourinary: Denies: burning, discharge, dysuria Physical Exam Vital Signs: Temperature: 97.9, Source: Temporal, Heart Rate: 89, Respiratory Rate: 18, BP: 143/88, Pulse Oximetry: 97, Weight: 114.050 Oxygen Flow Rate: 0 Physical Exam well appearing no distress awake alert oriented lungs ctab abdomen soft non tender right cva ttp skin pwd Progress Results/Orders Results/Orders Orders - RONEL CALHOUN MD Urinalysis, Cult If Indicated (04/28/25 13:22) Lipase (04/28/25 13:22) CMP (04/28/25 13:22) Completed Orders - RONEL CALHOUN MD Cbc/Diff (04/28/25 13:22) Vital Signs 04/28/25 13:19 Temp 97.9 Pulse 89 Resp 18 B/P (MAP) 143/88 Pulse Ox 97 O2 Flow Rate 0 Laboratory Tests Test 04/28/25 13:38 White Blood Count 5.8 Red Blood Count 5.23 Hemoglobin 14.4 Hematocrit 44.4 Mean Corpuscular Volume 85.0 Mean Corpuscular Hemoglobin 27.6 Mean Corpuscular Hemoglobin Concent 32.5 L Red Cell Distribution Width 15.0 H Platelet Count 255 Mean Platelet Volume 8.4 Neutrophils (%) (Auto) 47.7 Lymphocytes (%) (Auto) 36.1 Monocytes (%) (Auto) 13.2 H Eosinophils (%) (Auto) 2.8 Basophils (%) (Auto) 0.2 Neutrophils # (Auto) 2.8 Lymphocytes # (Auto) 2.1 Monocytes # (Auto) 0.8 Eosinophils # (Auto) 0.2 Basophils # (Auto) 0.0 CBC Comment Sodium Level 139 Potassium Level 3.4 L Chloride Level 103 Carbon Dioxide Level 21.9 L Anion Gap 14 Blood Urea Nitrogen 11 Creatinine 1.09 Estimated GFR/1.73 m2 71 BUN/Creatinine Ratio 10.1 Glucose Level 163 H Calcium Level 8.4 L Total Bilirubin 0.3 Aspartate Amino Transf (AST/SGOT) 70 H Alanine Aminotransferase (ALT/SGPT) 97 H Alkaline Phosphatase 119 H Total Protein 7.3 Albumin 3.6 Globulin 3.7 Albumin/Globulin Ratio 1.0 L Chemistry Comments Departure Disposition: HOME / SELF CARE / HOMELESS Impression: Primary Impression: Renal colic Additional Impression Text Patients discharge delayed by lack of urinalysis. 54 yom h/o chronic right renal pelvis stone p/w chronic right cva pain. No fevers. UA small leuk esterase, no nitrites. Similar to prior micro which was negative. Pain well controlled. Plan to f/u with urology in the morning. Additional Instructions: Please follow up with urology, Call them in the morning. return for fever. Referrals: TERESA MANZANARES MD Signature Scribe Signature: gasper Attestation: RONEL Magaña MD Apr 28, 2025 14:30
[2025-04-28] MEDS: ringers solution, lacted 1,000 ML IV ONE (16:43)
[2025-04-28] MEDS: ketorolac trometh 15mg/ml vial 15 MG/ML ML IV ONE (16:43)
[2025-04-28 17:31] VITALS: BP 131/86; PULSE 75; RESP 18; O2SAT 95
[2025-04-28 19:17] LABS: LEUKOCYTE ESTERASE ,URINE SMALL (Neg); NITRITES, URINE NEGATIVE (Neg); OCCULT BLOOD,URINE MODERATE (Neg)
[2025-04-28 19:20] LABS: UA COLLECTION TYPE CLN CATCH MIDSTREAM
[2025-04-28 19:24] LABS: HYALINE CASTS 0-3 /LPF (NEGATIVE); MUCUS STRANDS MANY /LPF (Neg); SQUAMOUS EPITHELIAL CELL,UR FEW /LPF (FEW)
[2025-04-28] MEDS: oxyCODONE IR 5mg (immed. release) tablet PO ONE (19:57)
== END 2025-04-28 20:08 | disposition home or self-care (01) ==
LOC: ER 13:13
DX: N20.0 Calculus of kidney (principal); I50.9 Heart failure, unspecified; Z87.442 Personal history of urinary calculi; Z79.899 Other long term (current) drug therapy
CPT/HCPCS: 36415; 80053; 81001; 83690; 85025; 87088; 96361; 96374; 99283; J1885; J7030; J7120

== ENCOUNTER 2025-07-05 14:25 | Inpatient (IN) | payer MEDICAID ==
[~2025-07-05] VITALS: Ht 180.3 cm; Wt 118.2 kg
[~2025-07-05 14:25] MED LIST changes: +OXYC-150 PO
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
[2025-07-05 14:58] LABS: LEUKOCYTE ESTERASE ,URINE MODERATE (Neg); OCCULT BLOOD,URINE LARGE (Neg)
[2025-07-05 15:03] LABS: UA COLLECTION TYPE CLN CATCH MIDSTREAM
[2025-07-05 15:04] LABS: MUCUS STRANDS NONE SEEN /LPF (Neg); NITRITES, URINE NEGATIVE (Neg); SQUAMOUS EPITHELIAL CELL,UR NONE SEEN /LPF (FEW)
[2025-07-05 15:12] LABS: MEAN PLATELET VOLUME 8.1 FL (7.4-10.4); RED CELL DISTRIBUTION WIDTH 16.5 % (11.5-14.5)
[2025-07-05 15:26] LABS: CREATININE 1.01 MG/DL (0.60-1.10); TOTAL CARBON DIOXIDE 25.9 MMOL/L (24-32); eCRCL 90 ML/MIN; eGFR 77 ML/MIN
[2025-07-05] MEDS ORDERED: iohexol 300mg/ml 100ml inj. ONE (15:36)
--- NOTE | 2025-07-05 16:17 | RADIOLOGY REPORT ---
Indication: Large hernia with increased pain Technique: CT axial images of the abdomen and pelvis are obtained with intravenous contrast. Coronal and sagittal reformats were obtained. Radiation Dose Information: CTDI volume is 35 mGy. Dose-length product is 1690 mGy*cm Comparison: CT CT ABDOMEN PELVIS on DOS: 06/20/25, CT CT ABDOMEN PELVIS on DOS: 03/17/25, CT CT ABDOMEN PELVIS on DOS: 09/06/24 FINDINGS: Lung bases demonstrate atelectasis. Adrenal glands unremarkable. Splenic calcification consistent with remote granulomatous disease. Pancreas unremarkable. Hepatic steatosis. Cholelithiasis. Left kidney demonstrates no hydroureteronephrosis. The right kidney demonstrates moderate right hydroureteronephrosis. There is a right renal pelvic calculus measuring 13 mm. Right perinephric edema / stranding. 1 cm right renal cyst. Stomach is partially distended. Small bowel loops are normal in caliber. Partial colectomy. Sigmoid stump. Right abdominal ileostomy. Parastomal hernia containing bowel loops measuring 9.7 x 6.3 cm. Abdominal aortic atherosclerotic disease and tortuosity. Bladder wall thickening. No free pelvic fluid. No inguinal lymphadenopathy. [id number] bilateral sacroiliac degenerative joint disease. Advanced lumbar degenerative disc disease L5-S1. [id number] thoracolumbar degenerative disc disease of the remaining levels are visualized. IMPRESSION: Moderate right hydroureteronephrosis with right renal pelvic calculus measuring 1.3 cm. Right perinephric and periureteral stranding, bladder wall thickening with straightening which can be secondary to urinary tract infection / cystitis. Correlate clinically. Right abdominal ostomy. Parastomal hernia containing small bowel loops measuring 9.7 x 6.3 cm. Hemicolectomy. Cholelithiasis. Other findings as described
[2025-07-05] MEDS: ketorolac trometh 30MG/ML vial 30 MG/ML VIAL IV ONE (17:38)
[2025-07-05] MEDS ORDERED: GABA-530 PO (17:45)
[2025-07-05] MEDS ORDERED: FOLI1TAB27 PO (17:45)
[2025-07-05] MEDS: CefTRIAXone/D5W-Rocephin 1gm 50 ML IV ONE (19:13)
[2025-07-05] MEDS: normal saline 1000ml 1,000 ML IV ONE (19:15)
[2025-07-05] MEDS ORDERED: magnesium Cl slow-release 64mg tablet PO PRN (20:10)
[2025-07-05] MEDS ORDERED: ondansetron/PF 4mg/2ml inj IV PRN (20:10)
[2025-07-05] MEDS ORDERED: magnesium hydroxide 30ml (MOM) UD suspension PO PRN (20:10)
[2025-07-05] MEDS ORDERED: magnesium sulf-water 2g/50mL 50 ML IV PRN (20:10)
[2025-07-05] MEDS ORDERED: potassium Cl 40MEQ/1/2NS 520ml 520 ML IV PRN (20:10)
[2025-07-05] MEDS ORDERED: HYDROcodone/acetaminophen 5mg/325mg tablet PO PRN (20:10)
[2025-07-05] MEDS ORDERED: mag hydrox/Alum hydrox/simeth 30ml oral suspension PO PRN (20:10)
[2025-07-05] MEDS ORDERED: magnesium sulf-water 4G/100mL 100 ML IV PRN (20:10)
[2025-07-05] MEDS ORDERED: potassium Cl 20 mEq SR tablet PO PRN ×2 (20:10)
[2025-07-05] MEDS ORDERED: diazepam inj 5 MG/ML inj. IV PRN (20:15)
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
[2025-07-05 21:15] VITALS: BP 154/89; PULSE 79; RESP 20; TEMP 98.3; O2SAT 95
[2025-07-05 21:44] LABS: URINE AMPHETAMINE SCREEN POSITIVE (Neg); URINE BARBITUATE SCREEN NEGATIVE (Neg); URINE BENZODIAZEPINES SCREEN NEGATIVE (Neg); URINE CANNABINOID SCREEN POSITIVE (Neg); URINE COCAINE SCREEN NEGATIVE (Neg); URINE METHADONE SCREEN NEGATIVE (Neg); URINE OPIATE SCREEN POSITIVE (Neg); URINE PHENCYCLIDINE SCREEN NEGATIVE (Neg)
[2025-07-05 21:50] LABS: INR 1.1 INR
[2025-07-05 22:15] LABS: PRO BRAIN NATRIURETIC PEPTIDE < 30 PG/ML (0-125)
--- NOTE | 2025-07-05 22:45 | RADIOLOGY REPORT ---
CHEST RADIOGRAPH Indication: Persistent dry cough Technique: Frontal and lateral view of the chest was obtained Comparison: DI CHEST,SINGLE VIEW on DOS: 03/17/25 FINDINGS: Lines and Tubes: None Lungs: Clear Pleura: No effusion. No pneumothorax. Cardiomediastinal contours: Unremarkable Bones: Unremarkable IMPRESSION: No evidence of acute disease.
[2025-07-05] MEDS: normal saline 1000ml 1,000 ML IV SCH (23:09)
[2025-07-06 00:22] VITALS: RESP 16; O2SAT 95
[2025-07-06] MEDS: clindamycin 300mg/D5W 50mL 50 ML IV SCH (03:01)
[2025-07-06] MEDS: HYDROcodone/acetaminophen 10/325mg tab PO PRN (03:18)
[2025-07-06] MEDS: morphine 4 MG/ML inj SYRINge IV PRN ×2 (04:49→22:42)
[2025-07-06 06:00] VITALS: BP 101/58; PULSE 89; RESP 22; TEMP 97.9; O2SAT 93
[2025-07-06 06:14] LABS: MEAN PLATELET VOLUME 8.9 FL (7.4-10.4); RED CELL DISTRIBUTION WIDTH 16.3 % (11.5-14.5)
[2025-07-06 06:31] LABS: CREATININE 1.15 MG/DL (0.60-1.10); TOTAL CARBON DIOXIDE 23.1 MMOL/L (24-32); eCRCL 79 ML/MIN; eGFR 67 ML/MIN
[2025-07-06] MEDS: K and/or MAG REPLACEMENT MC SCH (08:00)
[2025-07-06] MEDS: docusate sod 100mg capsule PO SCH (08:00)
[2025-07-06] MEDS ORDERED: CefTRIAXone/D5W-Rocephin 1gm 50 ML IV SCH (08:00)
[2025-07-06] MEDS: enoxaparin 40mg/0.4ml syringe SUBCUT SCH (08:46)
[2025-07-06 10:00] VITALS: BP 110/61; PULSE 84; RESP 15; TEMP 98; O2SAT 94
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
[2025-07-06 18:00] VITALS: BP_SYST 113; BP_SYST 128; BP_DIAS 68; BP_DIAS 71; PULSE 78; PULSE 84; RESP 16; RESP 18; TEMP 97.7; O2SAT 94; O2SAT 99
--- NOTE | 2025-07-06 18:48 | RADIOLOGY REPORT ---
ABDOMINAL ULTRASOUND CLINICAL HISTORY: Possible cirrhosis evaluation TECHNIQUE: Multiple grayscale and color Doppler ultrasound images were obtained of the abdomen. WID: COMPARISON: CT CT ABDOMEN PELVIS W/ IV CONTRAST on DOS: 07/05/25 FINDINGS: Liver and Biliary System: Increased echogenicity, normal size measuring 16.72 cm. No focal hepatic observations. No intrahepatic bile duct dilatation. The common duct measures 0.6 cm at the bao hepatis. The gallbladder is normal caliber without wall thickening or pericholecystic fluid. There is cholelithiasis. Pancreas: Visualized portions are grossly unremarkable. Spleen: is within normal limits. Kidneys: The right kidney is 12.21 cm and the left kidney is 11.32 cm. There is mild right hydronephrosis. There is a calculus in the right renal pelvis measuring 1.3 cm. There is also a linear stent seen within the right renal pelvis. There is a 9 mm cyst in the right upper pole kidney. IVC: Visualized portions are normal in caliber. IMPRESSION: 1. Hepatic steatosis. 2. Cholelithiasis. 3. Mild right hydronephrosis with a calculus in the right renal pelvis. 4. Linear stent also seen in the right renal pelvis.
[2025-07-06] MEDS: ciprofloxacin lact 400MG/200ML 200 ML IV SCH (20:22)
--- NOTE | 2025-07-06 21:24 | PROGRESS NOTE ---
Progress Note ID Providers to CC ~ Progress Note Progress Note: pt seen and examined-erythema noted-parastomal hernia has not changed when compared to ct from March-pt needs antibiotcs and followup with his colorectal surgeon-EDUAR Franklin MD Jul 06, 2025 21:23
[2025-07-06 22:00] VITALS: BP 128/71; PULSE 78; RESP 18; TEMP 97.7; O2SAT 99
[2025-07-06] MEDS: doxycycline 100mg/NS 100mL PB 100 ML IV SCH (22:21)
[2025-07-07 06:00] VITALS: BP 151/79; PULSE 74; RESP 16; TEMP 96.9; O2SAT 96
[2025-07-07 06:28] LABS: MEAN PLATELET VOLUME 8.7 FL (7.4-10.4); RED CELL DISTRIBUTION WIDTH 16.6 % (11.5-14.5)
[2025-07-07 06:58] LABS: CREATININE 0.92 MG/DL (0.60-1.10); TOTAL CARBON DIOXIDE 27.1 MMOL/L (24-32); eCRCL 99 ML/MIN; eGFR 86 ML/MIN
[2025-07-07 07:00] VITALS: TEMP 98.4
[2025-07-07 10:00] VITALS: BP 104/58; PULSE 78; RESP 18; TEMP 98.4; O2SAT 96
[2025-07-07] MEDS ORDERED: LACT1CAP26 PO ×2 (12:23→13:16)
[2025-07-07] MEDS ORDERED: SULF1TAB49 PO ×2 (12:23→13:16)
[2025-07-07] MEDS ORDERED: DIPH-423 PO (12:23)
[2025-07-07] MEDS ORDERED: NEOM28.37 TOP ×2 (12:23→13:16)
[2025-07-07] MEDS ORDERED: DIPH25CA83 PO (13:16)
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
== END 2025-07-07 14:52 | disposition home or self-care (01) | DRG 252 ==
LOC: ER 14:25 → ED HOLD 20:04 → ORTHO 4S 21:17
PROVIDERS: ADMIT Internal Medicine; ATTEND Internal Medicine
PROC: BW211ZZ Computerized Tomography (CT Scan) of Abdomen and Pelvis using Low Osmolar Contrast (ICD-10-PCS; principal; 2025-07-05)
DX: K94.02 Colostomy infection (principal); N13.6 Pyonephrosis; K43.5 Parastomal hernia without obstruction or gangrene; F10.10 Alcohol abuse, uncomplicated; F15.90 Other stimulant use, unspecified, uncomplicated; K80.20 Calculus of gallbladder without cholecystitis without obstruction; L29.9 Pruritus, unspecified; R74.01 Elevation of levels of liver transaminase levels; Y83.3 Surgical operation with formation of external stoma as the cause of abnormal reaction of the patient, or of later complication, without mention of misadventure at the time of the procedure; Y90.9 Presence of alcohol in blood, level not specified; Z87.442 Personal history of urinary calculi; Z79.899 Other long term (current) drug therapy; Z87.891 Personal history of nicotine dependence; Y92.89 Other specified places as the place of occurrence of the external cause
CPT/HCPCS: 36415; 71046; 74177; 76700; 80048; 80053; 80305; 81001; 82150; 82607; 83605; 83690; 83735; 83880; 84145; 84484; 85025; 85027; 85610; 85651; 87040; 87081; 87088; 96365; 96375; 96376; 99285; A4421; G0378; J0696; J0744; J1171; J1271; J1650; J1885; J2270; J3490; J7030; Q0163; Q9967

== ENCOUNTER 2025-07-07 23:00 | Emergency (ER) | payer MEDICAID ==
[~2025-07-07] VITALS: Ht 180.3 cm; Wt 118.3 kg
[~2025-07-07 23:00] MED LIST changes: +DIPH-423 PO; +DIPH25CA83 PO; +GABA-530 PO; +LACT1CAP26 PO; +NEOM28.37 TOP; +SULF1TAB49 PO
--- NOTE | 2025-07-07 23:59 | Physician Documentation ---
History of Present Illness ~ Chief Complaint: Allergic Reaction Stated Complaint: BODY SWELLING Time Seen by MD: 23:59 Primary Medical Doctor: TANNER CALHOUN 54-year-old male, presenting with skin redness and itching He tells me that he was recently admitted to the hospital for a kidney infection. While he was in the hospital he developed redness and itching after receiving antibiotics, and has been treated with Benadryl. He was discharged from the hospital today. When he went home, he had worsening redness and itching to his skin over his entire body. No fevers or chills. No nausea or vomiting. No wheezing or shortness of yanelis th. No lesions in the mouth. No blistering of the skin. He was discharged with Bactrim but has not started taking it yet. He does not take any Benadryl today Medication Reconciliation Allergies: Coded Allergies: No Known Drug Allergies (Verified Allergy, Unknown, 07/06/25) Uncoded Allergies: ABX'S (Adverse Reaction, Mild, PT FEELS ITCHY; NO HIVES OR BUMPS, 07/06/25) PT IS AWARE THEY FEEL ITCHY AFTER IV ABX AND OKAY TO CONTINUE 06/2025 Scheduled Diphenhydramine Hcl (Benadryl), 2 CAP PO HS Folic Acid* (Folic Acid*), 1 TAB PO DAILY, (Reported) Gabapentin (Gabapentin), 300 CAP PO Q8H, (Reported) Lactobacillus Rhamnosus (Culturelle), 1 EACH PO BID Neomycin/Bacitracin/Polymyxinb (Neosporin Ointment), 1 APPLIC TOP Q12H Sulfamethoxazole/Trimethoprim (Bactrim Ds Tablet), 1 EACH PO BID Discontinued Medications Folic Acid* (Folic Acid*), 1 MG PO DAILY Discontinued Reason: patient no longer taking Ibuprofen (Ibuprofen), 1 TAB PO Q8H Discontinued Reason: patient no longer taking Multivitamin with Folic Acid (Thera Tablet), 1 EACH PO Q24H Discontinued Reason: patient no longer taking ONDANSETRON ODT 4mg tablet (Ondansetron Odt), 1 TAB PO Q6H PRN PRN for na usea/vomiting Discontinued Reason: patient no longer taking ONDANSETRON ODT 4mg tablet (Ondansetron Odt), 1 TABLET PO Q6H PRN for nausea/vomiting Discontinued Reason: patient no longer taking Oxycodone HCl/Acetaminophen (Percocet 10-325 mg Tablet), 1 TAB PO Q4HPRN PRN for pain Discontinued Reason: patient no longer taking Tamsulosin Hcl (Flomax), 1 CAP PO DAILY Discontinued Reason: patient no longer taking [thiamine tablet], 100 MG PO DAILY Discontinued Reason: patient no longer taking Past Medical History Past Medical History: *GI/HEPATOBILIARY*, Kidney Stones Patient History: Patient reports no known family medical history. Alcohol Use: Heavy Drug Use: methamphetamine Lives with: Family Lives In: Home Occupation: employed Review of Systems Constitutional: Denies: fever Integumentary: Reports: rash, itching Physical Exam Vital Signs: Temperature: 98.1, Heart Rate: 89, Respiratory Rate: 16, BP: 149/82, Pulse Oximetry: 98, Weight: 118.300 Oxygen Flow Rate: 0 Physical Exam General: This is a pleasant and overall healthy appearing middle-aged man, partner at bedside HEENT: Atraumatic, oropharynx is moist, no intraoral lesions or blistering Heart: Regular rate and rhythm, normal-appearing peripheral perfusion Lungs: Clear breath sounds bilateral, no wheezing Abdomen: Ostomy in place with mild surrounding erythema Skin: The patient has diffuse erythema that is blanching and warm, in his extremities, neck, and trunk. There are some areas of excoriation. Psychiatric: Calm and cooperative with exam Progress Results/Orders Results/Orders Completed Orders - RAMESH METZGER MD Triamcinolone Acet 40mg/Ml Inj (Kenalog- (07/08/25 00:20) Diphenhydramine Inj (Benadryl Inj.) (07/08/25 00:20) Cetirizine Tablet (Zyrtec Tablet) (07/08/25 00:25) Medications Received in ER Medications (Trade) Dose Ordered Sig/Carlos Route PRN Reason Start Time Stop Time Status Last Admin Dose Admin (Kenalog-40 inj) 60 mg ONCE ONCE IM 07/08/25 00:20 07/08/25 00:21 DC 07/08/25 00:38 60 MG (Benadryl inj.) 50 mg ONCE ONCE IM 07/08/25 00:20 07/08/25 00:29 DC 07/08/25 00:37 50 MG (Zyrtec tablet) 10 mg ONCE ONCE PO 07/08/25 00:25 07/08/25 00:26 DC 07/08/25 00:37 10 MG Vital Signs 07/07/25 07/08/25 23:22 00:45 Temp 98.1 98.1 Pulse 89 82 Resp 16 16 B/P (MAP) 149/82 136/81 Pulse Ox 98 94 O2 Flow Rate 0 Medical Decision Making Differential Diagnosis The patient presents with a rash. Per his history and exam this all appears consistent with a drug reaction. He has no evidence of anaphylaxis or serious allergic reaction. No intraoral lesions or findings to suggest Fuentes-Antonio syndrome. He was treated with IM steroids and Benadryl. He will be discharged with a plan for antihistamines. Return precautions given if he does develop worsening symptoms to suggest Fuentes-Antonio syndrome, infection, or other worsening process. Departure Time of Disposition: 00:20 Disposition: 01 HOME / SELF CARE / HOMELESS Impression: Primary Impression: Drug-induced skin rash Condition: Stable Discharge Instructions: Drug Rash Referrals: NO PRIMARY CARE PROVIDER (PCP) Education Educated: Patient, Family Educated regarding: diagnosis, treatment, need for follow up Signature Scribe Signature: na Attestation: RAMESH Sweeney MD Jul 07, 2025 23:59
[2025-07-08] MEDS: triamcinolone acetonide 40mg/ml inj IM ONE (00:38)
[2025-07-08 00:45] VITALS: BP 136/81; PULSE 82; RESP 16; TEMP 98.1; O2SAT 94
== END 2025-07-08 00:46 | disposition home or self-care (01) ==
LOC: ER 23:01
DX: L27.0 Generalized skin eruption due to drugs and medicaments taken internally (principal); F15.90 Other stimulant use, unspecified, uncomplicated
CPT/HCPCS: 96372; 99284; J1200; J3301